=== PATIENT | male | born 1960 | race Two or more races ===

== ENCOUNTER 2020-05-13 12:38 | Outpatient (CLI) | payer MEDICARE, OTHER ==
[2020-05-13] MEDS ORDERED: MUPIROCIN 2% CREAM 15 GM TUBE TP ONE (13:24)
== END 2020-05-13 23:59 | disposition home health service (06) ==
LOC: WOU 12:38
PROVIDERS: ATTEND Podiatrist Foot & Ankle Surgery
DX: E11.621 Type 2 diabetes mellitus with foot ulcer (principal); L97.522 Non-pressure chronic ulcer of other part of left foot with fat layer exposed; L97.512 Non-pressure chronic ulcer of other part of right foot with fat layer exposed; E11.42 Type 2 diabetes mellitus with diabetic polyneuropathy; M21.42 Flat foot [pes planus] (acquired), left foot; M21.41 Flat foot [pes planus] (acquired), right foot; E66.9 Obesity, unspecified; Z68.41 Body mass index [BMI] 40.0-44.9, adult; Z79.4 Long term (current) use of insulin
CPT/HCPCS: 11042; 87070-TC; 87075-TC; 87186-TC

== ENCOUNTER 2020-05-19 12:00 | Outpatient (CLI) | payer MEDICARE, OTHER | END 2020-05-19 23:59 | disposition home or self-care (01) | LOC: WOU 12:00 → MRI 23:59 | PROVIDERS: ATTEND Podiatrist Foot & Ankle Surgery | DX: M86.8X7 Other osteomyelitis, ankle and foot (principal); L97.529 Non-pressure chronic ulcer of other part of left foot with unspecified severity; L97.519 Non-pressure chronic ulcer of other part of right foot with unspecified severity; M62.571 Muscle wasting and atrophy, not elsewhere classified, right ankle and foot; R60.0 Localized edema | CPT/HCPCS: 73718-TC ==

== ENCOUNTER 2020-05-20 13:35 | Outpatient (CLI) | payer MEDICARE, OTHER ==
[2020-05-20] MEDS ORDERED: MUPIROCIN 2% CREAM 15 GM TUBE TP ONE (14:03)
[2020-05-21] MEDS ORDERED: MUPIROCIN 2% CREAM 15 GM TUBE TP ONE (10:20)
== END 2020-05-20 23:59 | disposition home health service (06) ==
LOC: WOU 13:35
PROVIDERS: ATTEND Podiatrist Foot & Ankle Surgery
DX: E11.621 Type 2 diabetes mellitus with foot ulcer (principal); L97.522 Non-pressure chronic ulcer of other part of left foot with fat layer exposed; L97.512 Non-pressure chronic ulcer of other part of right foot with fat layer exposed; E11.42 Type 2 diabetes mellitus with diabetic polyneuropathy; Z79.4 Long term (current) use of insulin; M21.42 Flat foot [pes planus] (acquired), left foot; M21.41 Flat foot [pes planus] (acquired), right foot; E66.9 Obesity, unspecified; Z68.41 Body mass index [BMI] 40.0-44.9, adult
CPT/HCPCS: 11042

== ENCOUNTER 2020-05-21 09:43 | Outpatient (CLI) | payer MEDICARE, OTHER ==
[2020-05-21 12:05] LABS: CALCIUM, SERUM 9.3 mg/dL (8.5-10.1); CREATININE 1.1 mg/dL (0.6-1.3); POTASSIUM 4.2 mmol/L (3.5-5.1)
[2020-05-21 13:49] LABS: PREALBUMIN 22.7 MG/DL (18.0-35.7)
== END 2020-05-21 23:59 | disposition home or self-care (01) ==
LOC: VASLAB 09:43
PROVIDERS: ATTEND Internal Medicine
DX: E11.621 Type 2 diabetes mellitus with foot ulcer (principal); L97.529 Non-pressure chronic ulcer of other part of left foot with unspecified severity; L97.519 Non-pressure chronic ulcer of other part of right foot with unspecified severity; E11.610 Type 2 diabetes mellitus with diabetic neuropathic arthropathy; I10 Essential (primary) hypertension
CPT/HCPCS: 36415; 80048; 83036; 84134; G0463

== ENCOUNTER 2020-07-15 12:50 | Outpatient (CLI) | payer MEDICARE, OTHER ==
[2020-07-15] MEDS ORDERED: MUPIROCIN 2% CREAM 15 GM TUBE TP ONE (13:43)
== END 2020-07-15 23:59 | disposition home health service (06) ==
LOC: WOU 12:50
PROVIDERS: ATTEND Podiatrist Foot & Ankle Surgery
DX: E11.621 Type 2 diabetes mellitus with foot ulcer (principal); L97.522 Non-pressure chronic ulcer of other part of left foot with fat layer exposed; L97.512 Non-pressure chronic ulcer of other part of right foot with fat layer exposed; E11.42 Type 2 diabetes mellitus with diabetic polyneuropathy; Z79.4 Long term (current) use of insulin; M21.42 Flat foot [pes planus] (acquired), left foot; M21.41 Flat foot [pes planus] (acquired), right foot; E66.9 Obesity, unspecified; Z68.41 Body mass index [BMI] 40.0-44.9, adult
CPT/HCPCS: 11042